=== PATIENT | male | born 1980 | race Hispanic/Latino ===

== ENCOUNTER 2020-02-03 15:57 | Day surgery (SDC) | payer SELFPAY ==
[~2020-02-03 15:57] MED LIST: Dexamethasone 20 MG/5 ML VIAL ONE; Esmolol 100 MG/10 ML VIAL ONE; Iopamidol 370 76% 100 ML VIAL ONE; Ketorolac Tromethamine 30 MG/ML VIAL ONE; Lidocaine 1% PF 5 ML VIAL ONE; Ondansetron PF 4 MG/2 ML Vial ONE; PHENYLEPHRINE-NS 100 MCG/ML 10 ML SYRINGE ONE; PROPOFOL 200 MG/20 ML VIAL ONE; Rocuronium Bromide 10 MG/ML (10ML VIAL) ONE; Succinylcholine Chloride 20 MG/ML 10 ml SYRINGE FS ONE
[2020-02-03 16:38] LABS: Bacteria/HPF None Seen HPF (None Seen); Bilirubin Negative (Negative); Blood, Urine Negative (Negative); Clarity Clear (Clear); Glucose, Urine (Dipstick) Normal (Negative); Ketone, Urine Greater than 150 mg/dL (Negative); Leukocyte Negative Leu/uL (Negative); Mucous/LPF 1+ LPF (<2+); Nitrite Negative (Negative); Protein, Urine (Dipstick) 30 mg/dL (Neg-Trace); RBC/HPF 0-3 HPF (0-3); Specific Gravity, Urine 1.031 (1.002-1.036); Squamous Epithelial None Seen HPF (0-3); Urobilinogen Normal mg/dL (Less than 2); WBC/HPF 0-3 HPF (0-3); pH, Urine 6.5 (5.0-9.0)
[2020-02-03 16:49] LABS: #Basophils 0.1 thou/uL (0.0-0.2); #Eosinphils 0.1 thou/uL (0.0-0.7); #Lymphocytes 1.4 thou/uL (1.20-3.40); #Monocytes 0.4 thou/uL (0.11-0.59); #Neutrophils 10.5 thou/uL (1.40-6.50); %Basophils 0.6 % (0.0-1.0); %Eosinophils 0.6 % (0.0-10.0); %Lymphocytes 11.3 % (21.0-51.0); %Monocytes 3.4 % (0.0-10.0); %Neutrophils 84.2 % (42.0-75.0); Hemoglobin 16.7 g/dL (14.0-18.0); Mean Corpuscular HGB CONC 34.1 g/dL (32.0-36.0); Mean Corpuscular Hemoglobin 30.9 pg (27.0-31.0); Mean Corpuscular Volume 90.6 fL (78.0-98.0); Mean Platelet Volume 7.7 fL (7.4-10.4); Platelet Count 242 thou/uL (130-400); RBC Distribution Width 11.9 % (11.5-14.5); Red Blood Cell (RBC) Count 5.38 mill/uL (4.70-6.10); White Blood Cell (WBC) Count 12.5 thou/uL (4.8-10.8)
[2020-02-03 17:10] LABS: ALT (SGPT) 39 U/L (8-55); AST (SGOT) 30 U/L (5-34); Albumin 4.5 g/dL (3.5-5.0); Alkaline Phosphatase 76 U/L (40-110); Anion Gap 15 mmol/L (10-20); BUN (Urea Nitrogen) 14 mg/dL (8.9-20.6); Bilirubin, Total 0.6 mg/dL (0.2-1.2); Calc. Creatinine Clearance 0 mL/min (70-130); Carbon Dioxide 23 mmol/L (22-29); Chloride 104 mmol/L (98-107); Estimated GFR-MDRD Greater than 90; Globulin 3.2 g/dL (2.4-3.5); Glucose 124 mg/dL (70-105); Lipase 12 U/L (8-78); Potassium 3.6 mmol/L (3.5-5.1); Protein, Total 7.7 g/dL (6.0-8.3); Sodium 138 mmol/L (136-145)
[2020-02-03] MEDS ORDERED: Ondansetron PF 4 MG/2 ML Vial ONE (17:20)
--- NOTE | 2020-02-03 17:33 | ULT ---
GALLBLADDER ULTRASOUND: HISTORY: Right upper quadrant abdominal pain, nausea and vomiting FINDINGS: The liver demonstrates increased echogenicity without focal mass or intrahepatic biliary ductal dilat ation. No gallstones, gallbladder wall thickening or pericholecystic fluid are seen. The right kidney and pancreas are normal. The common duct [id number] in diameter. No free fluid is seen in the Snow's pouch. IMPRESSION: 1. Fatty liver 2. No evidence cholelithiasis.
[2020-02-03] MEDS ORDERED: Mag-Al 1200 mg/1200 mg/30 ML UDCUP ONE (18:00)
[2020-02-03] MEDS ORDERED: Lidocaine Viscous Sol 2% 15 ml UD Cup ONE (18:00)
--- NOTE | 2020-02-03 19:08 | CT ---
CT ABDOMEN PELVIS WITH IV CONTRAST HISTORY: Epigastric pain, nausea and vomiting FINDINGS: The lung bases are clear. A small hiatal hernia is present. There is fatty infiltration of the liver. The spleen, pancreas, adrenal glands and kidneys are normal. No calcific gallstones are seen. No free air, free fluid or lymphadenopathy seen in the abdomen or pelvis. The small bowel loops are n ot abnormally dilated. There are mild degenerative changes in the spine. The aortic caliber is normal. A dilated fluid-filled appendix is seen with periappendiceal inflammatory changes. IMPRESSION: Acute appendicitis. Discussed over the telephone with ER physician Dr. Bryn Lanza at 7:02 PM.
[2020-02-03] MEDS ORDERED: Piperacillin/Tazobactam 3.375 GM VIAL ONE (19:13)
[2020-02-03] MEDS ORDERED: Midazolam HCl 2 mg/2 ml Vial ONE (19:31)
[2020-02-03] MEDS ORDERED: Fentanyl 100 MCG/2 ML VIAL ONE ×3 (19:31→21:29)
[2020-02-03] MEDS ORDERED: Bupivacaine 0.25% HCL 30 ML VIAL ONE (19:34)
[2020-02-03] MEDS ORDERED: Lidocaine 1% w/Epinephrine 1:100K 20 ML VIAL ONE (19:34)
[2020-02-03] MEDS ORDERED: SUGAMMADEX SODIUM 200 MG/2 ML VIAL ONE (20:43)
--- NOTE | 2020-02-03 21:10 | HP ---
CHIEF COMPLAINT: Periumbilical pain. HISTORY OF PRESENT ILLNESS: This is a 39-year-old male with no medical history, who presents with a history of epigastric bloating and pain. He was seen in the emergency department where ultrasound showed no intraabdominal abnormality. He was mildly tender in the right lower quadrant, so CT scan was performed. CT scan shows evidence of appendicitis. He has never had this pain before. Denies history of nausea, vomiting, or diarrhea. No change in stools. No sick contacts. His pain is now more in the right lower quadrant. The pain was described as 8/10, not associated with dysuria. PAST MEDICAL HISTORY: He denies. PAST SURGICAL HISTORY: He denies. MEDICATIONS: Taken daily, none. ALLERGIES: NO KNOWN DRUG ALLERGIES. SOCIAL HISTORY: No smoking, alcohol, or other drugs. FAMILY HISTORY: Noncontributory to GI malignancy or anesthetic-related complications. REVIEW OF SYSTEMS: 10-system review of systems otherwise negative unless described above. PHYSICAL EXAMINATION: HEENT: Sclerae anicteric. Oropharynx clear. NECK: No lymphadenopathy. CHEST: Clear. HEART: Regular rate. ABDOMEN: Soft. Tender in right lower quadrant with localized guarding. No rebound. No abdominal hernias. EXTREMITIES: No ischemia or edema to extremities. LABORATORY DATA: White blood cell count is 12, hemoglobin 16, and platelet count is 242. Sodium 138, potassium 3.6, and creatinine 0.8. ASSESSMENT: Acute appendicitis based on CT scan. PLAN: Laparoscopic appendectomy. Risks, benefits, and alternatives discussed. He gives consent. We will do this today. Job ID: [id number]
[2020-02-03] MEDS ORDERED: Meperidine HCl/PF 25 MG/ML VIAL ONE (21:13)
[2020-02-03] MEDS ORDERED: HYDROcodone/Acetaminophen 5/325 mg Tablet ONE (21:44)
--- NOTE | 2020-02-04 00:50 | OP ---
DATE OF PROCEDURE: 02/03/2020 PREOPERATIVE DIAGNOSIS: Acute appendicitis. POSTOPERATIVE DIAGNOSIS: Acute appendicitis. PROCEDURE PERFORMED: Laparoscopic appendectomy. ANESTHESIA: General. ESTIMATED BLOOD LOSS: Minimal. COMPLICATIONS: None. SPECIMEN: Appendix. FINDINGS: Appendicitis. DESCRIPTION OF PROCEDURE: The patient was taken to the operating room and laid supine on the operating table. After general anesthetic was obtained, a Zavala was placed. The abdomen was shaved, prepped and draped in a sterile fashion. Curved incision was made below the umbilicus. Cautery was used to dissect down to and score the fascia. Abdominal cavity was entered bluntly using a Renetta clamp. Holding stitch of PDS was placed on each side of the fascia. Shruthi trocar was placed. High-flow pneumoperitoneum was obtained. A suprapubic 5 mm port and left lower quadrant 5 mm port were placed under direct visualization. The cecum was rolled over to reveal acute appendicitis. There was locally inflammatory inflammation. Cautery was used to mobilize the right colon along the white line of Toldt slightly to allow the appendix to be brought up. A window was made at the base of appendix and mesoappendix. A laparoscopic stapler was fired across the base appendix. A reload was fired across the mesoappendix. There was no bleeding on the staple line. The appendix was placed in the EndoCatch bag and brought out through the Shruthi. The right lower quadrant and pelvis were irrigated using sterile solution. There was no perforation, but there was pretty significant transmural necrosis of the appendix. There was no injury to any intraabdominal structures. No ongoing bleeding. All port sites were infiltrated using local anesthetic. All ports were removed under camera visualization. Pneumoperitoneum was let down. PDS was used to close the fascial defect below the umbilicus. All incisions were irrigated and closed using a 4-0 Monocryl and Dermabond. The patient was sent to Recovery in stable condition. All instrument counts, needle counts, and lap counts were correct. Job ID: [id number]
== END 2020-02-03 22:15 | disposition home or self-care (01) ==
LOC: ERS 15:57 → SDC/OP 20:58
PROVIDERS: ATTEND Surgery
PROC: 0DTJ4ZZ Resection of Appendix, Percutaneous Endoscopic Approach (ICD-10-PCS; principal; 2020-02-03)
DX: K35.80 Unspecified acute appendicitis (principal); K76.0 Fatty (change of) liver, not elsewhere classified; K44.9 Diaphragmatic hernia without obstruction or gangrene
CPT/HCPCS: 74177; 76705; 80053; 81003; 81015; 83690; 85025; 88304; 96361; 96365; 96372; 96375; J0500; J1100; J1885; J2175; J2250; J2405; J2543; J2704; J3010; Q9967; S0020